=== PATIENT | female | born 1985 | race Two or more races ===

== ENCOUNTER 2025-06-26 07:24 | Outpatient (CLI) | payer OTHER | END 2025-06-26 07:25 | disposition home or self-care (01) | LOC: PRENATAL 07:24 | PROVIDERS: ATTEND Obstetrics & Gynecology Maternal & Fetal Medicine | DX: O44.02 Complete placenta previa NOS or without hemorrhage, second trimester (principal); O09.512 Supervision of elderly primigravida, second trimester; Z3A.20 20 weeks gestation of pregnancy ==